=== PATIENT | female | born 1970 | race African-American/Black ===

== ENCOUNTER → 2017-05-05 | Outpatient (CLI) | payer OTHER ==
[~2017-05-05] VITALS: Ht 165.1 cm; Wt 56.2 kg
[~2017-05-05] MED LIST: AMITRIPTYLINE H10 M3 PO; ARANESP 4040 MCG/0.4 IJ; ARTHRITIS PAIN650 M3 PO; DILAUDID 2 MG TA2 MG PO; DOXYCYCLINE 10100 MG PO; HEPARIN 1,100 UNIT/1 IV; LEVAQUIN 500 M500 M2 PO; LIDODERM 5%1 PATC1 TRANSDERM; LIPITOR10 MG PO; LOPERAMIDE 2 MG2 M1 PO; LOPRESSOR100 M1 PO; LYRICA 75 MG CA75 MG PO; NICOTINE TRANSD21 M1 TRANSDERM; OXYCODONE HCL15 MG PO; PANTOPRAZOLE SO40 M1 PO; PIPERACIL-TAZ2.25 GM IV; PREDNISONE5 MG PO; PROBIOTIC1 EAC1 PO; REMERON15 MG PO; RENA-VITE TABL0.8 MG PO; RENVELA800 MG PO; SENOKOT-S1 TA1 PO; SODIUM THIOSULFATE IVPB; [UNRECOGNIZED DRUG - OTHER] TOP
[2017-05-05 10:44] VITALS: BP 166/80
== END | disposition home or self-care (01) ==
LOC: SPEC 06:28
DX: Z45.2 Encounter for adjustment and management of vascular access device (principal); L97.909 Non-pressure chronic ulcer of unspecified part of unspecified lower leg with unspecified severity; I12.0 Hypertensive chronic kidney disease with stage 5 chronic kidney disease or end stage renal disease; N18.6 End stage renal disease; I48.91 Unspecified atrial fibrillation; I63.8 Other cerebral infarction; D64.89 Other specified anemias; K21.9 Gastro-esophageal reflux disease without esophagitis; Z87.891 Personal history of nicotine dependence; Z98.890 Other specified postprocedural states; Z79.899 Other long term (current) drug therapy; Z79.01 Long term (current) use of anticoagulants